=== PATIENT | female | born 1990 | race Caucasian/White ===

== ENCOUNTER 2017-01-17 22:39 | Emergency (ER) | payer OTHER ==
[2017-01-17 23:30] LABS: APPEARANCE HAZY (CLEAR); BILIRUBIN NEGATIVE (NEGATIVE); COLOR YELLOW (YELLOW); GLUCOSE NEGATIVE (NEGATIVE); KETONE NEGATIVE (NEGATIVE); LEUKOCYTE ESTERASE 2+ (NEGATIVE); NITRITE NEGATIVE (NEGATIVE); PROTEIN NEGATIVE (NEGATIVE); SPECIFIC GRAVITY 1.015 (1.005-1.020); UROBILINOGEN NORMAL (NORMAL)
[2017-01-17 23:36] LABS: RED CELLS - URINE 0-5 /hpf (0-5)
[2017-01-17 23:37] LABS: BACTERIA MODERATE /hpf (NONE SEEN); YEAST >1+ WITH HYPHAE /hpf (NONE SEEN)
[2017-01-18 00:04] LABS: BASOPHILS 0.1 % (0-2); EOSINOPHILS 0.1 % (0-7); HEMATOCRIT 39.5 % (36.0-48.0); HEMOGLOBIN 12.9 g/dL (12-16); IMMATURE GRANULOCYTES 0.6 % (0-5); MCH 29.7 pg (26.0-34.0); MCHC 32.7 g/dL (31.0-37.0); MEAN PLATELET VOLUME 9.3 fL (7.4-10.4); MONOCYTES 6.9 % (2-11); NEUTROPHILS 79.3 % (40-80); PLATELET COUNT 419 10x3/uL (130-400); RBC 4.34 10x6/uL (4.00-5.40); RDW 14.3 % (11.5-14.5); WBC 14.2 10x3/uL (4.8-10.8)
[2017-01-18 00:23] LABS: HCG SERUM NEGATIVE (NEGATIVE)
[2017-01-18 00:26] LABS: ALBUMIN 3.6 g/dL (3.4-5.0); ANION GAP 10.8 mmol/L (8-16); BILIRUBIN - TOTAL 0.19 mg/dL (0.2-1.3); CARBON DIOXIDE 29.4 mmol/L (21.0-32.0); CREATININE - SERUM 1.1 mg/dL (0.6-1.3); POTASSIUM - SERUM 4.2 mmol/L (3.5-5.1); PROTEIN - SERUM 7.7 g/dL (6.4-8.2)
== END 2017-01-18 01:20 | disposition home or self-care (01) ==
LOC: D.ER 22:39
PROVIDERS: Emergency Medicine
DX: N39.0 Urinary tract infection, site not specified (principal); R10.2 Pelvic and perineal pain

== ENCOUNTER → 2017-04-02 12:15 | Outpatient (CLI) | payer OTHER ==
[2017-04-02 13:29] LABS: HCG SERUM NEGATIVE (NEGATIVE)
== END | disposition home or self-care (01) ==
LOC: D.NM 12:15
PROVIDERS: Internal Medicine Gastroenterology
DX: R11.2 Nausea with vomiting, unspecified (principal); R10.9 Unspecified abdominal pain

== ENCOUNTER → 2017-04-11 09:13 | Outpatient (CLI) | payer OTHER ==
[2017-04-11 11:07] LABS: ERYTHROCYTE SEDIMENTATION RATE 15 mm/hr (0-20)
== END | disposition home or self-care (01) ==
LOC: D.LAB 09:13 → D.RAD 09:30
PROVIDERS: Internal Medicine Gastroenterology
DX: R10.9 Unspecified abdominal pain (principal)

== ENCOUNTER → 2017-06-06 09:08 | Outpatient (CLI) | payer OTHER | END | disposition home or self-care (01) | LOC: D.CT 06-05 08:00 → D.US 06-05 08:00 → D.CT 09:30 | DX: R10.9 Unspecified abdominal pain (principal); R11.0 Nausea; R63.4 Abnormal weight loss ==

== ENCOUNTER 2018-09-13 17:19 | Emergency (ER) | payer SELFPAY ==
[~2018-09-13] VITALS: Ht 148.6 cm; Wt 62.0 kg
[2018-09-13 17:30] VITALS: Ht 148.6 cm; Wt 62.0 kg
[2018-09-13] MEDS ORDERED: ZOLOFT100 MG PO (17:34)
[2018-09-13 18:04] LABS: BASOPHILS 0.2 % (0-2); EOSINOPHILS 0.4 % (0-7); HEMATOCRIT 39.3 % (36.0-48.0); IMMATURE GRANULOCYTES 0.1 % (0-5); LYMPHOCYTES 19.5 % (15-50); MCH 27.3 pg (26.0-34.0); MCHC 33.1 g/dL (31.0-37.0); MCV 82.4 fL (80.0-100.0); MEAN PLATELET VOLUME 9.4 fL (7.4-10.4); MONOCYTES 5.4 % (2-11); NEUTROPHILS 74.4 % (40-80); RBC 4.77 10x6/uL (4.00-5.40); RDW 16.5 % (11.5-14.5)
[2018-09-13 18:14] LABS: PLATELET COUNT 328 10x3/uL (130-400)
[2018-09-13 18:24] LABS: ALBUMIN 4.1 g/dL (3.4-5.0); ALKALINE PHOSPHATASE 48 U/L (46-116); ALT (SGPT) 19 U/L (10-68); AMYLASE - SERUM 31 U/L (25-115); BILIRUBIN - TOTAL 0.29 mg/dL (0.2-1.3); CALC OSMOLALITY 278 mosm/kg (275-300); CALCIUM 8.7 mg/dL (8.5-10.1); CARBON DIOXIDE 22.5 mmol/L (21.0-32.0); CHLORIDE - SERUM 104 mmol/L (98-107); CREATININE - SERUM 0.8 mg/dL (0.6-1.3); GLUCOSE 84 mg/dL (74-106); LIPASE 218 U/L (73-393); POTASSIUM - SERUM 3.5 mmol/L (3.5-5.1); PROTEIN - SERUM 8.6 g/dL (6.4-8.2); SODIUM 141 mmol/L (136-145); TROPONIN-I < 0.017 ng/mL (0.000-0.060); UREA NITROGEN 10 mg/dL (7-18); eGFR NON AFRICAN AMERICAN > 90 mL/min (90-120)
[2018-09-13 19:36] LABS: APPEARANCE CLEAR (CLEAR); BILIRUBIN NEGATIVE (NEGATIVE); COLOR YELLOW (YELLOW); EPITHELIAL CELLS 0-5 /hpf (0-5); GLUCOSE NEGATIVE (NEGATIVE); KETONE MODERATE mg/dL (NEGATIVE); NITRITE NEGATIVE (NEGATIVE); PROTEIN NEGATIVE (NEGATIVE); UROBILINOGEN NORMAL (NORMAL); WHITE CELLS - URINE OCC /hpf (0-5)
[2018-09-13 19:37] LABS: BACTERIA FEW /hpf (NONE SEEN)
[2018-09-13] MEDS ORDERED: ZOFRAN4 MG PO (23:09)
[2018-09-13] MEDS ORDERED: HYDROCODON-ACE1 EAC7 PO (23:09)
[2018-09-13] MEDS ORDERED: LEVOFLOXACIN500 MG PO (23:09)
[2018-09-13] MEDS ORDERED: MEDROL DOSE PACK4 MG PO (23:09)
[2018-09-13 23:30] VITALS: BP 115/70
== END 2018-09-13 23:30 | disposition home or self-care (01) ==
LOC: D.ER 17:19
PROVIDERS: Family Medicine
DX: Z87.19 Personal history of other diseases of the digestive system (principal); R10.9 Unspecified abdominal pain; N83.201 Unspecified ovarian cyst, right side

== ENCOUNTER 2019-01-15 19:51 | Emergency (ER) | payer SELFPAY ==
[~2019-01-15 19:51] MED LIST: HYDROCODON-ACE1 EAC7 PO; LEVOFLOXACIN500 MG PO; MEDROL DOSE PACK4 MG PO; ZOFRAN4 MG PO; ZOLOFT100 MG PO
[2019-01-15 20:05] VITALS: BMI 28.8
[2019-01-15 20:35] LABS: APPEARANCE CLEAR (CLEAR); BILIRUBIN NEGATIVE (NEGATIVE); COLOR YELLOW (YELLOW); GLUCOSE NEGATIVE (NEGATIVE); KETONE NEGATIVE (NEGATIVE); NITRITE NEGATIVE (NEGATIVE); PROTEIN NEGATIVE (NEGATIVE); UROBILINOGEN NORMAL (NORMAL)
[2019-01-15 21:14] LABS: ALBUMIN 3.7 g/dL (3.4-5.0); ALKALINE PHOSPHATASE 47 U/L (46-116); ALT (SGPT) 14 U/L (10-68); BILIRUBIN - TOTAL 0.17 mg/dL (0.2-1.3); CALC OSMOLALITY 279 mosm/kg (275-300); CALCIUM 8.6 mg/dL (8.5-10.1); CHLORIDE - SERUM 104 mmol/L (98-107); CREATININE - SERUM 0.7 mg/dL (0.6-1.3); GLUCOSE 93 mg/dL (74-106); SODIUM 140 mmol/L (136-145); UREA NITROGEN 16 mg/dL (7-18); eGFR NON AFRICAN AMERICAN > 90 mL/min (90-120)
[2019-01-15 21:17] LABS: AMYLASE - SERUM 40 U/L (25-115); LIPASE 158 U/L (73-393)
[2019-01-15 21:20] LABS: TROPONIN-I < 0.017 ng/mL (0.000-0.060)
[2019-01-15 22:23] LABS: BASOPHILS 0.1 % (0-2); EOSINOPHILS 0.6 % (0-7); HEMATOCRIT 40.5 % (36.0-48.0); HEMOGLOBIN 13.2 g/dL (12-16); IMMATURE GRANULOCYTES 0.2 % (0-5); LYMPHOCYTES 17.2 % (15-50); MCH 28.7 pg (26.0-34.0); MCHC 32.6 g/dL (31.0-37.0); NEUTROPHILS 73.9 % (40-80); PLATELET COUNT 318 10x3/uL (130-400); RDW 15.5 % (11.5-14.5); WBC 8.9 10x3/uL (4.8-10.8)
[2019-01-15 23:05] LABS: HCG URINE NEGATIVE (NEGATIVE)
[2019-01-16] MEDS ORDERED: FLORASTOR250 MG PO (01:03)
[2019-01-16] MEDS ORDERED: LEVSIN/ANASP0.125 MG PO (01:03)
[2019-01-16 01:42] VITALS: BP 115/76
== END 2019-01-16 01:30 | disposition home or self-care (01) ==
LOC: D.ER 19:51
PROVIDERS: Family Medicine
DX: R10.9 Unspecified abdominal pain (principal)